=== PATIENT | female | born 1935 | race African-American/Black ===

== ENCOUNTER 2016-11-19 13:38 | Inpatient (IN) | payer MEDICARE, BC ==
[~2016-11-19] VITALS: Ht 175.3 cm; Wt 121.6 kg
[2016-11-19] MEDS ORDERED: NITROGLYCERIN OINT 1GM/INCH UDPKT TD STA (17:31)
[2016-11-19] MEDS ORDERED: ASPIRIN 81MG TABLET PO STA (17:31)
[2016-11-19] MEDS ORDERED: FUROSEMIDE 40MG/4ML VIAL IV STA (17:31)
[2016-11-19 17:52] LABS: BASOPHILS % 0.7 % (0.0-2.0); EOSINOPHILS % 1.2 % (0.0-5.0); HEMATOCRIT. 43.3 % (36.0-48.0); LYMPHOCYTES % 14.1 % (20.0-50.0); MEAN CORPUSCULAR HEMOGLOBIN 26.6 pg (28.0-32.0); MEAN CORPUSCULAR HGB CONC 32.2 g/dL (31.0-37.0); MEAN CORPUSCULAR VOLUME 82.5 fL (81.0-99.0); MEAN PLATELET VOLUME 8.8 fl (7.4-10.4); PLATELET 155 x1000/uL (130-400); RED BLOOD CELL COUNT 5.25 mill/uL (4.2-5.4); RED CELL DISTRIBUTION WIDTH 17.9 % (11.6-14.6); WHITE BLOOD COUNT 5.1 x1000/uL (4.5-11.0)
[2016-11-19 18:01] LABS: ALANINE AMINOTRANSFERASE 30 IU/L (13-61); ALBUMIN 3.4 g/dL (3.4-5.0); ANION GAP 14; CARBON DIOXIDE 29 mEq/L (21-32); CHLORIDE 104 mEq/L (98-107); INDEX HEMOLYSI 1 (1-3); INDEX ICTERIC 1 (1-4); INDEX LIPEMIC 1 (1-3); INR 1.4; NT PRO B-TYPE NATRIURETIC PEP 14184 pg/mL (5-125); PARTIAL THROMBOPLASTIN TIME 27.5 sec (24.0-34.0); PROTHROMBIN TIME 14.2 sec; TROPONIN I 0.16 ng/mL (0.00-0.04); UREA NITROGEN BLOOD 27 mg/dL (7-21); eGFR > 60 mL/min (>60)
[2016-11-19] MEDS ORDERED: NA PHOS,M-B/NA PHOS,DI-BA ENEMA 118ML PR PRN (18:15)
[2016-11-19] MEDS ORDERED: DOCUSATE SODIUM 100MG CAPSULE PO PRN (18:15)
[2016-11-19] MEDS ORDERED: NITROGLYCERIN 0.4MG TABLET SL SL PRN (18:15)
[2016-11-19] MEDS ORDERED: ONDANSETRON HCL 4MG/2ML VIAL IV PRN (18:15)
[2016-11-19] MEDS ORDERED: MORPHINE SULFATE 2 MG/ML CPJ (NOT FOR IM USE) IV PRN (18:15)
[2016-11-19] MEDS ORDERED: IPRATROPIUM/ALBUTEROL 0.5-3(2.5)MG/3ML NEB INH PRN (18:15)
[2016-11-19] MEDS ORDERED: CLONIDINE 0.1MG TABLET PO PRN (18:15)
[2016-11-19] MEDS ORDERED: DIPHENHYDRAMINE 50MG/ML VIAL IV PRN (18:15)
[2016-11-19] MEDS ORDERED: ACETAMINOPHEN 325MG TABLET PO PRN (18:15)
[2016-11-19] MEDS ORDERED: TRAMADOL 50MG TABLET PO PRN (18:15)
[2016-11-19] MEDS ORDERED: GUAIFENESIN 200MG/10ML SUGAR FREE UDC PO PRN (18:15)
[2016-11-19] MEDS ORDERED: MAGNESIUM/ALUMINUM HYDROXIDE/SIMETHICONE 30ML UDC PO PRN (18:15)
[2016-11-19] MEDS ORDERED: LORAZEPAM 2MG/ML CPJ IV PRN (18:15)
[2016-11-19] MEDS ORDERED: ZOLPIDEM TARTRATE 5MG TABLET PO PRN (21:00)
[2016-11-19 21:27] VITALS: BP 147/104
[2016-11-19] MEDS ORDERED: DEXTROSE 50% WATER 50ML SYRINGE IV PRN (22:00)
[2016-11-19] MEDS: SPIRONOLACTONE 25MG TABLET PO SCH (22:08)
[2016-11-19] MEDS: LISINOPRIL 20MG TABLET PO SCH (22:08)
[2016-11-19] MEDS: ENOXAPARIN 100MG/ML SYR SUBCUT SCH (22:08)
[2016-11-20] VITALS (7 sets, daily range): BP systolic 122–143; BP diastolic 85–102
[2016-11-20 00:05] LABS: CREATINE KINASE MB FRACTION 3.4 ng/mL (0.5-3.6); TROPONIN I 0.17 ng/mL (0.00-0.04)
[2016-11-20] MEDS: CARVEDILOL 3.125 MG TABLET PO SCH ×2 (05:03→17:22)
[2016-11-20] MEDS: INSULIN LISPRO 100 UNITS/ML SUBCUT SCH ×4 (05:58→20:39)
[2016-11-20] MEDS: BLOOD SUGAR DIAGNOSTIC STRIP TEST SCH ×4 (05:58→20:36)
[2016-11-20 07:27] LABS: CREATINE KINASE MB FRACTION 2.5 ng/mL (0.5-3.6); TROPONIN I 0.17 ng/mL (0.00-0.04)
[2016-11-20] MEDS: SPIRONOLACTONE 25MG TABLET PO SCH ×2 (08:57→20:36)
[2016-11-20] MEDS: ENOXAPARIN 100MG/ML SYR SUBCUT SCH (08:57)
[2016-11-20] MEDS: ZINC SULFATE 220 MG ( 50 ) CAPSULE PO SCH (08:57)
[2016-11-20] MEDS: PANTOPRAZOLE SODIUM 40 MG/VIAL IV SCH ×2 (08:57→09:00)
[2016-11-20] MEDS: ASPIRIN 325MG EC TABLET PO SCH (08:57)
[2016-11-20] MEDS: LISINOPRIL 20MG TABLET PO SCH ×2 (08:58→20:36)
[2016-11-20] MEDS: FUROSEMIDE 40MG/4ML VIAL IVP SCH ×2 (08:58→17:22)
[2016-11-20] MEDS: NITROGLYCERIN OINT 1GM/INCH UDPKT TD SCH ×2 (17:25→23:46)
[2016-11-20] MEDS: POTASSIUM CHLORIDE 20MEQ TABLET SR PO SCH (17:25)
[2016-11-20] MEDS: ATORVASTATIN CALCIUM 10MG TABLET PO SCH (20:39)
[2016-11-21 03:53] VITALS: BP 139/93
[2016-11-21] MEDS: NITROGLYCERIN OINT 1GM/INCH UDPKT TD SCH ×3 (06:00→17:46)
[2016-11-21] MEDS: CARVEDILOL 3.125 MG TABLET PO SCH (06:00)
[2016-11-21] MEDS: BLOOD SUGAR DIAGNOSTIC STRIP TEST SCH ×4 (06:06→20:13)
[2016-11-21] MEDS: INSULIN LISPRO 100 UNITS/ML SUBCUT SCH ×4 (06:15→20:13)
[2016-11-21 06:21] LABS: BASOPHILS % 0.7 % (0.0-2.0); EOSINOPHILS % 2.3 % (0.0-5.0); HEMATOCRIT. 40.1 % (36.0-48.0); LYMPHOCYTES % 19.3 % (20.0-50.0); MEAN CORPUSCULAR HEMOGLOBIN 26.8 pg (28.0-32.0); MEAN CORPUSCULAR HGB CONC 32.4 g/dL (31.0-37.0); MEAN CORPUSCULAR VOLUME 82.5 fL (81.0-99.0); MEAN PLATELET VOLUME 8.9 fl (7.4-10.4); MONOCYTES % 9.9 % (2.0-8.0); NEUTROPHILS % 67.8 % (40.0-76.0); PLATELET 163 x1000/uL (130-400); RED BLOOD CELL COUNT 4.85 mill/uL (4.2-5.4); RED CELL DISTRIBUTION WIDTH 17.7 % (11.6-14.6); WHITE BLOOD COUNT 4.7 x1000/uL (4.5-11.0)
[2016-11-21 07:37] LABS: CALCIUM 8.8 mg/dL (8.5-10.1); MAGNESIUM 2.2 mg/dL (1.8-2.4); TROPONIN I 0.17 ng/mL (0.00-0.04)
[2016-11-21 07:38] LABS: THYROID STIMULATING HORMONE 2.4 uIU/mL (0.36-3.74)
[2016-11-21 08:00] VITALS: BP 130/88
[2016-11-21] MEDS: PANTOPRAZOLE SODIUM 40 MG/VIAL IV SCH (09:00)
[2016-11-21] MEDS: ASPIRIN 325MG EC TABLET PO SCH (09:22)
[2016-11-21] MEDS: LISINOPRIL 20MG TABLET PO SCH ×2 (09:22→20:07)
[2016-11-21] MEDS: POTASSIUM CHLORIDE 20MEQ TABLET SR PO SCH (09:22)
[2016-11-21] MEDS: SPIRONOLACTONE 25MG TABLET PO SCH ×2 (09:22→20:07)
[2016-11-21] MEDS: ZINC SULFATE 220 MG ( 50 ) CAPSULE PO SCH (09:22)
[2016-11-21] MEDS: ENOXAPARIN 40MG/0.4ML SYR SUBCUT SCH (09:23)
[2016-11-21] MEDS: FUROSEMIDE 40MG/4ML VIAL IVP SCH (09:23)
[2016-11-21 12:00] VITALS: BP 140/100
[2016-11-21] MEDS: AMLODIPINE 2.5MG TABLET PO SCH ×2 (15:19→20:09)
[2016-11-21 16:00] VITALS: BP 123/81
[2016-11-21] MEDS: FUROSEMIDE 100MG/10ML VIAL IVP SCH (17:15)
[2016-11-21] MEDS: CARVEDILOL 6.25 MG TABLET PO SCH (17:46)
[2016-11-21 20:00] VITALS: BP 146/101
[2016-11-21] MEDS: ATORVASTATIN CALCIUM 10MG TABLET PO SCH (20:09)
[2016-11-22] VITALS: BP 142/101
[2016-11-22] MEDS: NITROGLYCERIN OINT 1GM/INCH UDPKT TD SCH ×4 (00:02→16:40)
[2016-11-22 04:00] VITALS: BP 126/83
[2016-11-22 05:54] LABS: CALCIUM 8.4 mg/dL (8.5-10.1); MAGNESIUM 2.2 mg/dL (1.8-2.4)
[2016-11-22 05:59] LABS: BASOPHILS % 0.8 % (0.0-2.0); DIFFERENTIAL COMMENT 0; EOSINOPHILS % 3.5 % (0.0-5.0); HEMATOCRIT. 38.6 % (36.0-48.0); HEMOGLOBIN. 12.4 g/dL (12.0-16.0); LYMPHOCYTES % 25.2 % (20.0-50.0); MEAN CORPUSCULAR HEMOGLOBIN 26.7 pg (28.0-32.0); MEAN CORPUSCULAR HGB CONC 32.1 g/dL (31.0-37.0); MEAN CORPUSCULAR VOLUME 83.1 fL (81.0-99.0); MEAN PLATELET VOLUME 9.2 fl (7.4-10.4); MONOCYTES % 9.5 % (2.0-8.0); PLATELET 153 x1000/uL (130-400); RED BLOOD CELL COUNT 4.65 mill/uL (4.2-5.4); RED CELL DISTRIBUTION WIDTH 17.1 % (11.6-14.6); WHITE BLOOD COUNT 4.1 x1000/uL (4.5-11.0)
[2016-11-22] MEDS: BLOOD SUGAR DIAGNOSTIC STRIP TEST SCH ×3 (06:00→16:39)
[2016-11-22] MEDS: CARVEDILOL 6.25 MG TABLET PO SCH ×3 (06:00→16:59)
[2016-11-22] MEDS: INSULIN LISPRO 100 UNITS/ML SUBCUT SCH ×3 (06:31→16:39)
[2016-11-22] MEDS: FUROSEMIDE 100MG/10ML VIAL IVP SCH ×2 (06:32→16:59)
[2016-11-22 08:00] VITALS: BP 129/87
[2016-11-22] MEDS: AMLODIPINE 2.5MG TABLET PO SCH (08:50)
[2016-11-22] MEDS: LISINOPRIL 20MG TABLET PO SCH (08:51)
[2016-11-22] MEDS: ENOXAPARIN 40MG/0.4ML SYR SUBCUT SCH (08:51)
[2016-11-22] MEDS: FAMOTIDINE 20MG TABLET PO SCH ×2 (08:52→16:39)
[2016-11-22] MEDS: ASPIRIN 325MG EC TABLET PO SCH (08:52)
[2016-11-22] MEDS: SPIRONOLACTONE 25MG TABLET PO SCH (08:52)
[2016-11-22] MEDS: ZINC SULFATE 220 MG ( 50 ) CAPSULE PO SCH (08:52)
[2016-11-22] MEDS: POTASSIUM CHLORIDE 20MEQ TABLET SR PO SCH (08:52)
[2016-11-22 12:00] VITALS: BP 124/93
[2016-11-22 14:56] VITALS: BP 124/93
[2016-11-22 16:00] VITALS: BP 144/101
== END 2016-11-22 18:30 | DRG 280 ==
LOC: ER 13:39 → SUPCPDRO 18:03 → 5WST 18:35
PROVIDERS: ADMIT Internal Medicine; ATTEND Internal Medicine
DX: I21.4 Non-ST elevation (NSTEMI) myocardial infarction (principal); I50.43 Acute on chronic combined systolic (congestive) and diastolic (congestive) heart failure; J96.00 Acute respiratory failure, unspecified whether with hypoxia or hypercapnia; I42.0 Dilated cardiomyopathy; I11.0 Hypertensive heart disease with heart failure; M32.9 Systemic lupus erythematosus, unspecified; E03.9 Hypothyroidism, unspecified; E66.01 Morbid (severe) obesity due to excess calories; E86.0 Dehydration; E11.65 Type 2 diabetes mellitus with hyperglycemia; E78.00 Pure hypercholesterolemia, unspecified; I27.2 Other secondary pulmonary hypertension; K04.7 Periapical abscess without sinus; M06.9 Rheumatoid arthritis, unspecified; R26.9 Unspecified abnormalities of gait and mobility; I34.0 Nonrheumatic mitral (valve) insufficiency; Z82.49 Family history of ischemic heart disease and other diseases of the circulatory system; Z89.429 Acquired absence of other toe(s), unspecified side; Z68.39 Body mass index [BMI] 39.0-39.9, adult; Z88.5 Allergy status to narcotic agent; Z88.0 Allergy status to penicillin; Z91.018 Allergy to other foods; Z71.3 Dietary counseling and surveillance
CPT/HCPCS: 36415; 71010; 80048; 80053; 80061; 82550; 82553; 82962; 83036; 83735; 83880; 84443; 84484; 85025; 85379; 85610; 85730; 93005; 93306; 93970; 96374; 97116; 97162; 97166; 97530; 97535; 99285; C9113; J1650; J1940; J7620

== ENCOUNTER 2016-11-22 18:30 | Inpatient (IN) | payer MEDICARE, BC ==
[~2016-11-22] VITALS: Ht 175.3 cm; Wt 98.4 kg
[2016-11-22 19:47] VITALS: BP 125/82
[2016-11-22 20:00] VITALS: BP 125/82
[2016-11-22] MEDS ORDERED: NA PHOS,M-B/NA PHOS,DI-BA ENEMA 118ML PR PRN (20:00)
[2016-11-22] MEDS ORDERED: CLONIDINE 0.1MG TABLET PO PRN (20:00)
[2016-11-22] MEDS ORDERED: NITROGLYCERIN 0.4MG TABLET SL SL PRN (20:00)
[2016-11-22] MEDS ORDERED: IPRATROPIUM/ALBUTEROL 0.5-3(2.5)MG/3ML NEB HHN PRN (20:00)
[2016-11-22] MEDS ORDERED: DOCUSATE SODIUM 100MG CAPSULE PO PRN (20:00)
[2016-11-22] MEDS ORDERED: MORPHINE SULFATE 2 MG/ML CPJ (NOT FOR IM USE) IV PRN (20:00)
[2016-11-22] MEDS ORDERED: LORAZEPAM 2MG/ML CPJ IV PRN (20:00)
[2016-11-22] MEDS ORDERED: DIPHENHYDRAMINE 50MG/ML VIAL IV PRN (20:00)
[2016-11-22] MEDS ORDERED: DEXTROSE 50% WATER 50ML SYRINGE IV PRN (20:00)
[2016-11-22] MEDS ORDERED: ACETAMINOPHEN 325MG TABLET PO PRN (20:00)
[2016-11-22] MEDS ORDERED: MAGNESIUM/ALUMINUM HYDROXIDE/SIMETHICONE 30ML UDC PO PRN (20:00)
[2016-11-22] MEDS ORDERED: TRAMADOL 50MG TABLET PO PRN (20:00)
[2016-11-22] MEDS ORDERED: ONDANSETRON HCL 4MG/2ML VIAL IV PRN (20:00)
[2016-11-22] MEDS ORDERED: ZOLPIDEM TARTRATE 5MG TABLET PO PRN (21:00)
[2016-11-22] MEDS: INSULIN LISPRO 100 UNITS/ML SUBCUT SCH (21:00)
[2016-11-22] MEDS: ATORVASTATIN CALCIUM 10MG TABLET PO SCH (21:00)
[2016-11-22] MEDS ORDERED: FAMOTIDINE 20MG TABLET PO SCH (21:00)
[2016-11-22] MEDS: SPIRONOLACTONE 25MG TABLET PO SCH (21:25)
[2016-11-22] MEDS: AMLODIPINE 2.5MG TABLET PO SCH (21:25)
[2016-11-22] MEDS: LISINOPRIL 20MG TABLET PO SCH (21:26)
[2016-11-22] MEDS: CARVEDILOL 6.25 MG TABLET PO SCH (21:27)
[2016-11-22] MEDS: BLOOD SUGAR DIAGNOSTIC STRIP TEST SCH (21:38)
[2016-11-22] MEDS: NITROGLYCERIN OINT 1GM/INCH UDPKT TD SCH (23:20)
[2016-11-23] MEDS: NITROGLYCERIN OINT 1GM/INCH UDPKT TD SCH ×4 (05:47→23:12)
[2016-11-23 05:51] LABS: CALCIUM 8.6 mg/dL (8.5-10.1); MAGNESIUM 1.9 mg/dL (1.8-2.4); PREALBUMIN 11.7 mg/dL (20.0-40.0)
[2016-11-23] MEDS ORDERED: SPIRONOLACTONE 25MG TABLET PO SCH (06:00)
[2016-11-23 06:19] LABS: BASOPHILS % 0.6 % (0.0-2.0); EOSINOPHILS % 3.2 % (0.0-5.0); HEMATOCRIT. 38.8 % (36.0-48.0); HEMOGLOBIN. 12.5 g/dL (12.0-16.0); LYMPHOCYTES % 20.5 % (20.0-50.0); MEAN CORPUSCULAR HEMOGLOBIN 26.6 pg (28.0-32.0); MEAN CORPUSCULAR HGB CONC 32.3 g/dL (31.0-37.0); MEAN CORPUSCULAR VOLUME 82.2 fL (81.0-99.0); MEAN PLATELET VOLUME 9.3 fl (7.4-10.4); MONOCYTES % 9.5 % (2.0-8.0); NEUTROPHILS % 66.2 % (40.0-76.0); PLATELET 171 x1000/uL (130-400); RED BLOOD CELL COUNT 4.72 mill/uL (4.2-5.4); RED CELL DISTRIBUTION WIDTH 17.4 % (11.6-14.6); WHITE BLOOD COUNT 4.1 x1000/uL (4.5-11.0)
[2016-11-23] MEDS: BLOOD SUGAR DIAGNOSTIC STRIP TEST SCH ×4 (07:02→21:30)
[2016-11-23] MEDS: INSULIN LISPRO 100 UNITS/ML SUBCUT SCH ×4 (07:02→21:00)
[2016-11-23 08:00] VITALS: BP 109/69
[2016-11-23] MEDS: ZINC SULFATE 220 MG ( 50 ) CAPSULE PO SCH (08:36)
[2016-11-23] MEDS: POTASSIUM CHLORIDE 20MEQ TABLET SR PO SCH (08:36)
[2016-11-23] MEDS: AMLODIPINE 2.5MG TABLET PO SCH ×2 (08:37→21:30)
[2016-11-23] MEDS: FAMOTIDINE 20MG TABLET PO SCH ×2 (08:37→16:48)
[2016-11-23] MEDS: SPIRONOLACTONE 25MG TABLET PO SCH ×2 (08:39→21:29)
[2016-11-23] MEDS: CARVEDILOL 6.25 MG TABLET PO SCH ×2 (08:39→21:30)
[2016-11-23] MEDS: LISINOPRIL 20MG TABLET PO SCH ×2 (08:40→21:29)
[2016-11-23] MEDS: ENOXAPARIN 40MG/0.4ML SYR SUBCUT SCH (08:44)
[2016-11-23] MEDS: ASPIRIN 325MG EC TABLET PO SCH (08:49)
[2016-11-23] MEDS: FUROSEMIDE 100MG/10ML VIAL IVP SCH ×2 (10:37→16:49)
[2016-11-23 20:00] VITALS: BP 142/87
[2016-11-23] MEDS: ATORVASTATIN CALCIUM 10MG TABLET PO SCH (21:00)
[2016-11-24] MEDS: NITROGLYCERIN OINT 1GM/INCH UDPKT TD SCH ×4 (05:50→23:13)
[2016-11-24] MEDS: BLOOD SUGAR DIAGNOSTIC STRIP TEST SCH ×4 (05:52→21:07)
[2016-11-24] MEDS: INSULIN LISPRO 100 UNITS/ML SUBCUT SCH ×4 (05:57→21:00)
[2016-11-24 08:00] VITALS: BP 138/86
[2016-11-24] MEDS: AMLODIPINE 2.5MG TABLET PO SCH ×2 (09:13→21:07)
[2016-11-24] MEDS: CARVEDILOL 6.25 MG TABLET PO SCH ×2 (09:14→21:06)
[2016-11-24] MEDS: FAMOTIDINE 20MG TABLET PO SCH ×2 (09:14→17:03)
[2016-11-24] MEDS: POTASSIUM CHLORIDE 20MEQ TABLET SR PO SCH (09:14)
[2016-11-24] MEDS: LISINOPRIL 20MG TABLET PO SCH ×2 (09:15→21:06)
[2016-11-24] MEDS: SPIRONOLACTONE 25MG TABLET PO SCH ×2 (09:15→21:06)
[2016-11-24] MEDS: ASPIRIN 325MG EC TABLET PO SCH (09:15)
[2016-11-24] MEDS: ZINC SULFATE 220 MG ( 50 ) CAPSULE PO SCH (09:15)
[2016-11-24] MEDS: FUROSEMIDE 100MG/10ML VIAL IVP SCH ×2 (09:16→17:03)
[2016-11-24] MEDS: ENOXAPARIN 40MG/0.4ML SYR SUBCUT SCH (09:16)
[2016-11-24 14:50] LABS: CLARITY URINE CLEAR (CLEAR); COLOR URINE YELLOW (YELLOW); GLUCOSE URINE NEGATIVE (NEGATIVE); KETONES URINE NEGATIVE (NEGATIVE); LEUKOCYTE ESTERASE URINE NEGATIVE (NEGATIVE); NITRITE URINE NEGATIVE (NEGATIVE); OCCULT BLOOD URINE TRACE (NEGATIVE); PH URINE 6.5 (4.5-8.0); PROTEIN URINE TRACE (NEGATIVE); SPECIFIC GRAVITY URINE 1.009 (1.005-1.030); UROBILINOGEN URINE 0.2 E.U./dL (0.2-1.0)
[2016-11-24 15:21] LABS: SQUAMOUS EPITHELIAL CELL URINE RARE /lpf (RARE/1+)
[2016-11-24 15:23] LABS: BACTERIA URINE NONE SEEN; RBC URINE NONE SEEN /hpf (0-2); WBC URINE 0-2 /hpf (0-2)
[2016-11-24] MEDS: DOCUSATE SODIUM 100MG CAPSULE PO SCH (17:00)
[2016-11-24 20:00] VITALS: BP 107/79
[2016-11-24] MEDS: ATORVASTATIN CALCIUM 10MG TABLET PO SCH (21:00)
[2016-11-25] MEDS: NITROGLYCERIN OINT 1GM/INCH UDPKT TD SCH ×3 (06:00→17:19)
[2016-11-25] MEDS: BLOOD SUGAR DIAGNOSTIC STRIP TEST SCH ×4 (06:02→21:53)
[2016-11-25] MEDS: INSULIN LISPRO 100 UNITS/ML SUBCUT SCH ×4 (06:02→21:00)
[2016-11-25 06:22] LABS: BASOPHILS % 0.6 % (0.0-2.0); EOSINOPHILS % 3.3 % (0.0-5.0); HEMOGLOBIN. 13.3 g/dL (12.0-16.0); MEAN CORPUSCULAR HEMOGLOBIN 26.6 pg (28.0-32.0); MEAN CORPUSCULAR HGB CONC 32.4 g/dL (31.0-37.0); MEAN CORPUSCULAR VOLUME 82.1 fL (81.0-99.0); MEAN PLATELET VOLUME 8.9 fl (7.4-10.4); MONOCYTES % 9.8 % (2.0-8.0); NEUTROPHILS % 64.3 % (40.0-76.0); PLATELET 189 x1000/uL (130-400); RED CELL DISTRIBUTION WIDTH 17.5 % (11.6-14.6); WHITE BLOOD COUNT 4.4 x1000/uL (4.5-11.0)
[2016-11-25 06:25] LABS: ALANINE AMINOTRANSFERASE 22 IU/L (13-61); ALBUMIN 3.2 g/dL (3.4-5.0); ANION GAP 14; CALCIUM 9.1 mg/dL (8.5-10.1); CARBON DIOXIDE 32 mEq/L (21-32); CHLORIDE 102 mEq/L (98-107); HDL CHOLESTEROL 56 mg/dL (40-59); INDEX HEMOLYSI 1 (1-3); INDEX ICTERIC 1 (1-4); INDEX LIPEMIC 1 (1-3); IRON 48 ug/dL (50-175); LDL CHOLESTEROL 113 mg/dL (5-100); PHOSPHORUS 3.6 mg/dL (2.5-4.9); TOTAL IRON BINDING CAPACITY 314 ug/dL (250-450); TRIGLYCERIDE 107 mg/dL (0-150); UREA NITROGEN BLOOD 28 mg/dL (7-21); eGFR 53 mL/min (>60)
[2016-11-25 08:01] VITALS: BP 116/73
[2016-11-25] MEDS: AMLODIPINE 2.5MG TABLET PO SCH ×2 (08:39→21:53)
[2016-11-25] MEDS: SPIRONOLACTONE 25MG TABLET PO SCH ×2 (08:39→21:52)
[2016-11-25] MEDS: LISINOPRIL 20MG TABLET PO SCH ×2 (08:39→21:00)
[2016-11-25] MEDS: FUROSEMIDE 100MG/10ML VIAL IVP SCH ×2 (08:48→17:07)
[2016-11-25] MEDS: ASPIRIN 325MG EC TABLET PO SCH (08:49)
[2016-11-25] MEDS: POTASSIUM CHLORIDE 20MEQ TABLET SR PO SCH (08:49)
[2016-11-25] MEDS: ZINC SULFATE 220 MG ( 50 ) CAPSULE PO SCH (08:49)
[2016-11-25] MEDS: FAMOTIDINE 20MG TABLET PO SCH ×2 (08:49→17:12)
[2016-11-25] MEDS: CARVEDILOL 6.25 MG TABLET PO SCH ×2 (08:49→21:00)
[2016-11-25] MEDS: DOCUSATE SODIUM 100MG CAPSULE PO SCH ×2 (08:50→17:00)
[2016-11-25] MEDS: ENOXAPARIN 40MG/0.4ML SYR SUBCUT SCH (08:50)
[2016-11-25] MEDS: CYANOCOBALAMIN 1000MCG/ML VIAL IM SCH (11:01)
[2016-11-25] MEDS: FERROUS SULFATE 325MG TABLET PO SCH ×2 (12:49→17:12)
[2016-11-25 20:00] VITALS: BP 110/75
[2016-11-25] MEDS: ATORVASTATIN CALCIUM 10MG TABLET PO SCH ×2 (21:52→21:57)
[2016-11-26] MEDS: NITROGLYCERIN OINT 1GM/INCH UDPKT TD SCH ×4 (00:33→18:19)
[2016-11-26] MEDS: BLOOD SUGAR DIAGNOSTIC STRIP TEST SCH ×4 (05:52→21:00)
[2016-11-26] MEDS: INSULIN LISPRO 100 UNITS/ML SUBCUT SCH ×4 (07:36→21:00)
[2016-11-26 08:02] VITALS: BP 120/72
[2016-11-26] MEDS: POTASSIUM CHLORIDE 20MEQ TABLET SR PO SCH (08:31)
[2016-11-26] MEDS: AMLODIPINE 2.5MG TABLET PO SCH ×2 (08:31→21:00)
[2016-11-26] MEDS: FERROUS SULFATE 325MG TABLET PO SCH ×3 (08:32→18:19)
[2016-11-26] MEDS: ASPIRIN 325MG EC TABLET PO SCH (08:32)
[2016-11-26] MEDS: SPIRONOLACTONE 25MG TABLET PO SCH ×2 (08:32→21:40)
[2016-11-26] MEDS: ZINC SULFATE 220 MG ( 50 ) CAPSULE PO SCH (08:32)
[2016-11-26] MEDS: LISINOPRIL 20MG TABLET PO SCH ×2 (08:32→21:00)
[2016-11-26] MEDS: DOCUSATE SODIUM 100MG CAPSULE PO SCH ×2 (08:32→18:16)
[2016-11-26] MEDS: FAMOTIDINE 20MG TABLET PO SCH ×2 (08:33→18:16)
[2016-11-26] MEDS: FUROSEMIDE 100MG/10ML VIAL IVP SCH ×2 (08:33→18:16)
[2016-11-26] MEDS: CYANOCOBALAMIN 1000MCG/ML VIAL IM SCH (08:33)
[2016-11-26] MEDS: CARVEDILOL 6.25 MG TABLET PO SCH ×2 (08:33→21:00)
[2016-11-26] MEDS: ENOXAPARIN 40MG/0.4ML SYR SUBCUT SCH (08:34)
[2016-11-26] MEDS: GUAIFENESIN 200MG/10ML SUGAR FREE UDC PO PRN (15:34)
[2016-11-26 19:00] VITALS: BP 107/70
[2016-11-27] MEDS: GUAIFENESIN 200MG/10ML SUGAR FREE UDC PO PRN ×2 (00:07→12:40)
[2016-11-27] MEDS: NITROGLYCERIN OINT 1GM/INCH UDPKT TD SCH ×5 (06:00→23:36)
[2016-11-27] MEDS: BLOOD SUGAR DIAGNOSTIC STRIP TEST SCH ×4 (06:17→21:16)
[2016-11-27 08:00] VITALS: BP 115/71
[2016-11-27] MEDS: CYANOCOBALAMIN 1000MCG/ML VIAL IM SCH (09:00)
[2016-11-27] MEDS: ZINC SULFATE 220 MG ( 50 ) CAPSULE PO SCH (09:00)
[2016-11-27] MEDS: DOCUSATE SODIUM 100MG CAPSULE PO SCH ×2 (09:00→17:00)
[2016-11-27] MEDS: AMLODIPINE 2.5MG TABLET PO SCH ×2 (09:00→20:47)
[2016-11-27] MEDS: ENOXAPARIN 40MG/0.4ML SYR SUBCUT SCH (09:00)
[2016-11-27] MEDS: FUROSEMIDE 100MG/10ML VIAL IVP SCH (09:00)
[2016-11-27] MEDS: LISINOPRIL 20MG TABLET PO SCH ×2 (09:00→20:48)
[2016-11-27] MEDS: INSULIN LISPRO 100 UNITS/ML SUBCUT SCH ×4 (09:00→21:00)
[2016-11-27] MEDS: POTASSIUM CHLORIDE 20MEQ TABLET SR PO SCH (09:01)
[2016-11-27] MEDS: ASPIRIN 325MG EC TABLET PO SCH (09:01)
[2016-11-27] MEDS: CARVEDILOL 6.25 MG TABLET PO SCH ×2 (09:01→20:47)
[2016-11-27] MEDS: SPIRONOLACTONE 25MG TABLET PO SCH ×2 (09:01→20:47)
[2016-11-27] MEDS: FAMOTIDINE 20MG TABLET PO SCH ×2 (09:01→17:49)
[2016-11-27] MEDS: FERROUS SULFATE 325MG TABLET PO SCH ×3 (09:01→17:49)
[2016-11-27 15:54] LABS: BASOPHILS % 0.7 % (0.0-2.0); EOSINOPHILS % 2.6 % (0.0-5.0); HEMATOCRIT. 41.3 % (36.0-48.0); HEMOGLOBIN. 13.3 g/dL (12.0-16.0); LYMPHOCYTES % 20.4 % (20.0-50.0); MEAN CORPUSCULAR HEMOGLOBIN 26.6 pg (28.0-32.0); MEAN CORPUSCULAR HGB CONC 32.1 g/dL (31.0-37.0); MEAN CORPUSCULAR VOLUME 82.8 fL (81.0-99.0); MEAN PLATELET VOLUME 8.7 fl (7.4-10.4); MONOCYTES % 10.1 % (2.0-8.0); NEUTROPHILS % 66.2 % (40.0-76.0); PLATELET 191 x1000/uL (130-400); RED BLOOD CELL COUNT 4.99 mill/uL (4.2-5.4); RED CELL DISTRIBUTION WIDTH 17.4 % (11.6-14.6); WHITE BLOOD COUNT 4.7 x1000/uL (4.5-11.0)
[2016-11-27 16:07] LABS: CALCIUM 9.2 mg/dL (8.5-10.1)
[2016-11-27 16:11] LABS: PHOSPHORUS 2.9 mg/dL (2.5-4.9)
[2016-11-27 20:00] VITALS: BP 115/72
[2016-11-27] MEDS: FUROSEMIDE 40MG TABLET PO SCH (20:46)
[2016-11-27] MEDS: ATORVASTATIN CALCIUM 10MG TABLET PO SCH (20:48)
[2016-11-28] MEDS: NITROGLYCERIN OINT 1GM/INCH UDPKT TD SCH ×3 (05:37→17:21)
[2016-11-28] MEDS: GUAIFENESIN 200MG/10ML SUGAR FREE UDC PO PRN (05:37)
[2016-11-28 06:17] LABS: BASOPHILS % 0.4 % (0.0-2.0); EOSINOPHILS % 2.7 % (0.0-5.0); HEMATOCRIT. 38.2 % (36.0-48.0); HEMOGLOBIN. 12.5 g/dL (12.0-16.0); LYMPHOCYTES % 20.1 % (20.0-50.0); MEAN CORPUSCULAR HEMOGLOBIN 26.6 pg (28.0-32.0); MEAN CORPUSCULAR HGB CONC 32.7 g/dL (31.0-37.0); MEAN CORPUSCULAR VOLUME 81.3 fL (81.0-99.0); MEAN PLATELET VOLUME 9.1 fl (7.4-10.4); MONOCYTES % 12.9 % (2.0-8.0); NEUTROPHILS % 63.9 % (40.0-76.0); PLATELET 186 x1000/uL (130-400); RED BLOOD CELL COUNT 4.69 mill/uL (4.2-5.4); RED CELL DISTRIBUTION WIDTH 17.4 % (11.6-14.6); WHITE BLOOD COUNT 5.1 x1000/uL (4.5-11.0)
[2016-11-28] MEDS: BLOOD SUGAR DIAGNOSTIC STRIP TEST SCH ×4 (06:21→21:40)
[2016-11-28] MEDS: INSULIN LISPRO 100 UNITS/ML SUBCUT SCH ×4 (07:05→21:00)
[2016-11-28 07:24] LABS: CALCIUM 8.9 mg/dL (8.5-10.1)
[2016-11-28 08:00] VITALS: BP 155/85
[2016-11-28] MEDS: FAMOTIDINE 20MG TABLET PO SCH ×2 (09:00→16:30)
[2016-11-28] MEDS: LISINOPRIL 20MG TABLET PO SCH (09:00)
[2016-11-28] MEDS: AMLODIPINE 2.5MG TABLET PO SCH ×2 (09:00→21:00)
[2016-11-28] MEDS: DOCUSATE SODIUM 100MG CAPSULE PO SCH ×2 (09:00→16:30)
[2016-11-28] MEDS: CYANOCOBALAMIN 1000MCG/ML VIAL IM SCH (09:29)
[2016-11-28] MEDS: ENOXAPARIN 40MG/0.4ML SYR SUBCUT SCH (09:30)
[2016-11-28] MEDS: FERROUS SULFATE 325MG TABLET PO SCH ×3 (09:30→16:28)
[2016-11-28] MEDS: ASPIRIN 325MG EC TABLET PO SCH (09:30)
[2016-11-28] MEDS: CARVEDILOL 6.25 MG TABLET PO SCH ×2 (09:31→21:00)
[2016-11-28] MEDS: ZINC SULFATE 220 MG ( 50 ) CAPSULE PO SCH (09:31)
[2016-11-28] MEDS: POTASSIUM CHLORIDE 20MEQ TABLET SR PO SCH (09:32)
[2016-11-28] MEDS: FUROSEMIDE 40MG TABLET PO SCH ×2 (09:33→21:40)
[2016-11-28] MEDS: SPIRONOLACTONE 25MG TABLET PO SCH ×2 (09:34→21:40)
[2016-11-28 20:00] VITALS: BP 111/65
[2016-11-28] MEDS: LOSARTAN POTASSIUM 50 MG TABLET PO SCH (21:00)
[2016-11-28] MEDS: ATORVASTATIN CALCIUM 10MG TABLET PO SCH (21:00)
[2016-11-28] MEDS: ENOXAPARIN 30MG/0.3ML SYR SUBCUT SCH (21:41)
[2016-11-29] MEDS: NITROGLYCERIN OINT 1GM/INCH UDPKT TD SCH ×4 (00:34→17:08)
[2016-11-29] MEDS: GUAIFENESIN 200MG/10ML SUGAR FREE UDC PO PRN ×2 (02:19→12:13)
[2016-11-29] MEDS: BLOOD SUGAR DIAGNOSTIC STRIP TEST SCH ×4 (07:10→21:00)
[2016-11-29] MEDS: INSULIN LISPRO 100 UNITS/ML SUBCUT SCH ×4 (07:11→21:00)
[2016-11-29 08:00] VITALS: BP 123/78
[2016-11-29] MEDS: LOSARTAN POTASSIUM 50 MG TABLET PO SCH ×2 (09:00→21:00)
[2016-11-29] MEDS: DOCUSATE SODIUM 100MG CAPSULE PO SCH ×2 (09:00→16:56)
[2016-11-29] MEDS: AMLODIPINE 2.5MG TABLET PO SCH ×2 (09:00→21:00)
[2016-11-29] MEDS: FAMOTIDINE 20MG TABLET PO SCH ×3 (09:00→16:56)
[2016-11-29] MEDS: ZINC SULFATE 220 MG ( 50 ) CAPSULE PO SCH (09:30)
[2016-11-29] MEDS: FUROSEMIDE 40MG TABLET PO SCH ×2 (09:31→23:48)
[2016-11-29] MEDS: FERROUS SULFATE 325MG TABLET PO SCH ×3 (09:31→17:07)
[2016-11-29] MEDS: SPIRONOLACTONE 25MG TABLET PO SCH ×2 (09:31→21:00)
[2016-11-29] MEDS: ASPIRIN 325MG EC TABLET PO SCH (09:31)
[2016-11-29] MEDS: POTASSIUM CHLORIDE 20MEQ TABLET SR PO SCH (09:31)
[2016-11-29] MEDS: CARVEDILOL 6.25 MG TABLET PO SCH ×2 (09:32→21:00)
[2016-11-29] MEDS: ENOXAPARIN 30MG/0.3ML SYR SUBCUT SCH ×2 (09:35→23:48)
[2016-11-29 20:00] VITALS: BP 117/81
[2016-11-29] MEDS: ATORVASTATIN CALCIUM 10MG TABLET PO SCH (21:00)
[2016-11-30] MEDS: NITROGLYCERIN OINT 1GM/INCH UDPKT TD SCH ×4 (00:55→17:57)
[2016-11-30 06:30] LABS: BASOPHILS % 0.8 % (0.0-2.0); EOSINOPHILS % 2.8 % (0.0-5.0); HEMATOCRIT. 38.5 % (36.0-48.0); HEMOGLOBIN. 12.5 g/dL (12.0-16.0); LYMPHOCYTES % 27.3 % (20.0-50.0); MEAN CORPUSCULAR HEMOGLOBIN 26.3 pg (28.0-32.0); MEAN CORPUSCULAR HGB CONC 32.4 g/dL (31.0-37.0); MEAN CORPUSCULAR VOLUME 81.3 fL (81.0-99.0); MEAN PLATELET VOLUME 8.5 fl (7.4-10.4); MONOCYTES % 12.3 % (2.0-8.0); NEUTROPHILS % 56.8 % (40.0-76.0); PLATELET 161 x1000/uL (130-400); RED BLOOD CELL COUNT 4.74 mill/uL (4.2-5.4); RED CELL DISTRIBUTION WIDTH 17.6 % (11.6-14.6); WHITE BLOOD COUNT 4.6 x1000/uL (4.5-11.0)
[2016-11-30] MEDS: BLOOD SUGAR DIAGNOSTIC STRIP TEST SCH ×4 (06:32→21:00)
[2016-11-30] MEDS: INSULIN LISPRO 100 UNITS/ML SUBCUT SCH ×4 (06:34→21:00)
[2016-11-30 07:51] LABS: CALCIUM 8.9 mg/dL (8.5-10.1); MAGNESIUM 2.2 mg/dL (1.8-2.4)
[2016-11-30 08:00] VITALS: BP 152/95
[2016-11-30] MEDS: ASPIRIN 325MG EC TABLET PO SCH (08:09)
[2016-11-30] MEDS: ZINC SULFATE 220 MG ( 50 ) CAPSULE PO SCH (08:09)
[2016-11-30] MEDS: LOSARTAN POTASSIUM 50 MG TABLET PO SCH ×2 (08:09→21:00)
[2016-11-30] MEDS: POTASSIUM CHLORIDE 20MEQ TABLET SR PO SCH (08:09)
[2016-11-30] MEDS: FAMOTIDINE 20MG TABLET PO SCH ×2 (08:09→17:00)
[2016-11-30] MEDS: FUROSEMIDE 40MG TABLET PO SCH ×2 (08:09→22:00)
[2016-11-30] MEDS: FERROUS SULFATE 325MG TABLET PO SCH ×3 (08:09→17:00)
[2016-11-30] MEDS: SPIRONOLACTONE 25MG TABLET PO SCH ×2 (08:09→22:01)
[2016-11-30] MEDS: DOCUSATE SODIUM 100MG CAPSULE PO SCH ×2 (08:11→17:00)
[2016-11-30] MEDS: GUAIFENESIN 200MG/10ML SUGAR FREE UDC PO PRN (08:11)
[2016-11-30] MEDS: AMLODIPINE 2.5MG TABLET PO SCH ×2 (08:11→21:00)
[2016-11-30] MEDS: CARVEDILOL 6.25 MG TABLET PO SCH ×2 (08:12→21:00)
[2016-11-30] MEDS: ENOXAPARIN 30MG/0.3ML SYR SUBCUT SCH ×2 (08:13→22:00)
[2016-11-30 20:00] VITALS: BP 114/73
[2016-11-30] MEDS: ATORVASTATIN CALCIUM 10MG TABLET PO SCH (21:00)
[2016-12-01] MEDS: NITROGLYCERIN OINT 1GM/INCH UDPKT TD SCH ×3 (00:11→11:39)
[2016-12-01] MEDS: BLOOD SUGAR DIAGNOSTIC STRIP TEST SCH ×2 (06:07→11:44)
[2016-12-01] MEDS: INSULIN LISPRO 100 UNITS/ML SUBCUT SCH ×2 (06:07→12:06)
[2016-12-01 07:57] VITALS: BP 120/81
[2016-12-01] MEDS: SPIRONOLACTONE 25MG TABLET PO SCH (08:23)
[2016-12-01] MEDS: ASPIRIN 325MG EC TABLET PO SCH (08:23)
[2016-12-01] MEDS: LOSARTAN POTASSIUM 50 MG TABLET PO SCH (08:23)
[2016-12-01] MEDS: POTASSIUM CHLORIDE 20MEQ TABLET SR PO SCH (08:23)
[2016-12-01] MEDS: FUROSEMIDE 40MG TABLET PO SCH (08:23)
[2016-12-01] MEDS: FERROUS SULFATE 325MG TABLET PO SCH ×2 (08:24→13:00)
[2016-12-01] MEDS: CARVEDILOL 6.25 MG TABLET PO SCH (08:24)
[2016-12-01] MEDS: ENOXAPARIN 30MG/0.3ML SYR SUBCUT SCH (08:25)
[2016-12-01] MEDS: ZINC SULFATE 220 MG ( 50 ) CAPSULE PO SCH (08:25)
[2016-12-01] MEDS: FAMOTIDINE 20MG TABLET PO SCH (08:25)
[2016-12-01] MEDS: AMLODIPINE 2.5MG TABLET PO SCH (08:25)
[2016-12-01] MEDS: DOCUSATE SODIUM 100MG CAPSULE PO SCH (08:25)
[2016-12-01] MEDS: GUAIFENESIN 200MG/10ML SUGAR FREE UDC PO PRN (11:37)
[2016-12-01 12:19] VITALS: BP 120/81
== END 2016-12-01 15:00 | disposition home health service (06) | DRG 292 ==
PROVIDERS: ADMIT Physical Medicine & Rehabilitation Spinal Cord Injury Medicine; ATTEND Internal Medicine
DX: I11.0 Hypertensive heart disease with heart failure (principal); E44.0 Moderate protein-calorie malnutrition; I50.21 Acute systolic (congestive) heart failure; I42.9 Cardiomyopathy, unspecified; I42.0 Dilated cardiomyopathy; E03.9 Hypothyroidism, unspecified; E11.65 Type 2 diabetes mellitus with hyperglycemia; E61.1 Iron deficiency; E66.01 Morbid (severe) obesity due to excess calories; E78.00 Pure hypercholesterolemia, unspecified; E55.9 Vitamin D deficiency, unspecified; K04.7 Periapical abscess without sinus; I27.2 Other secondary pulmonary hypertension; M06.9 Rheumatoid arthritis, unspecified; M32.9 Systemic lupus erythematosus, unspecified; R26.9 Unspecified abnormalities of gait and mobility; Z98.51 Tubal ligation status; Z68.39 Body mass index [BMI] 39.0-39.9, adult; Z89.422 Acquired absence of other left toe(s); Z88.6 Allergy status to analgesic agent; Z88.0 Allergy status to penicillin; Z91.018 Allergy to other foods; Z79.899 Other long term (current) drug therapy
CPT/HCPCS: 36415; 71010; 80048; 80053; 80061; 81001; 82306; 82607; 82728; 82746; 82962; 83036; 83540; 83550; 83735; 83880; 84100; 84134; 84443; 84630; 85025; 87086; 93970; 97110; 97112; 97116; 97162; 97167; 97530; 97535; J1650; J1940; J3420